=== PATIENT | female | born 1975 | race Caucasian/White ===

== ENCOUNTER 2022-01-18 07:50 | Outpatient (CLI) | payer BC | END 2022-01-18 07:51 | disposition home or self-care (01) | LOC: CSHMAMMO 07:50 | PROVIDERS: ATTEND Family Medicine | DX: Z12.31 Encounter for screening mammogram for malignant neoplasm of breast (principal) | CPT/HCPCS: 77063; 77067 ==

== ENCOUNTER 2023-02-28 10:48 | Outpatient (CLI) | payer BC | END 2023-02-28 10:49 | disposition home or self-care (01) | LOC: CSHMAMMO 10:48 | PROVIDERS: ATTEND Physician Assistant | DX: Z12.31 Encounter for screening mammogram for malignant neoplasm of breast (principal) | CPT/HCPCS: 77063; 77067 ==